=== PATIENT | female | born 1995 | race Caucasian/White ===

== ENCOUNTER 2022-01-24 13:29 | Outpatient (CLI) | payer BC, SELFPAY ==
--- NOTE | ~2022-01-24 | US_ITS ---
EXAMINATION: US OB /maternal detail DATE: 01/24/2022 15:13 INDICATION: Encounter for supervision of normal . TECHNIQUE: Real-time ultrasound of the pelvis was performed. COMPARISON: None. FINDINGS: There is a single living fetus in vertex presentation. The placenta is anterior. heart rate is 143 beats per minute (bpm). The amniotic fluid volume is subjectively normal. The following biometric data were obtained: Biparietal diameter (BPD): 7.1 cm; head circumference (HC): 26.1 cm; abdominal circumference (AC): 22 .7 cm; femur length (FL): 5.0 cm. These measurements are discordant with low FL/BPD ratio. Estimated weight is 1047 g +/- 157 g, which correlates with the <3rd percentile when 04/02/22 is used as estimated date of delivery. As single measurements, these parameters are each equal to the following estimated gestational ages: BPD: 28 weeks 3 days. HC: 28 weeks 2 days. AC: 27 weeks 1 days. FL: 27 weeks 0 days. estimated gestational age based solely on measurements from this exam is 27 weeks 5 days +/- 2 weeks 0 days. The cerebral ventricles, cerebellum, cisterna magna, and visualized portions of the spine are normal. The heart is normal. The diaphragm, stomach, kidneys, and bladder are normal. There are two umbilica l arteries to yield a 3-vessel cord. The cord insertion is normal. IMPRESSION: 1. Single living fetus in vertex presentation. 2. Small for gestational age. Estimated weight is 1047 g +/- 157 g, which correlates with the <3rd percentile when 04/02/22 is used as estimated date of delivery. 3. Discordant biometrics with low FL/BPD ratio. 4. Normal anatomic survey. Reviewed, dictated and finalized at location B. IMPRESSION: 1. Single living fetus in vertex presentation. 2. Small for gestational age. Estimated weight is 1047 g +/- 157 g, whic h correlates with the <3rd percentile when 04/02/22 is used as estimated date of delivery. 3. Discordant biometrics with low FL/BPD ratio. 4. Normal anatomic survey.
== END 2022-01-24 13:30 | disposition home or self-care (01) ==
PROVIDERS: Visit Provider Obstetrics & Gynecology
DX: Z34.92 Encounter for supervision of normal pregnancy, unspecified, second trimester (principal); Z3A.27 27 weeks gestation of pregnancy
CPT/HCPCS: 76805